=== PATIENT | male | born 2000 | race Caucasian/White ===

== ENCOUNTER 2020-11-05 21:55 | Emergency (ER) | payer OTHER ==
[~2020-11-05] VITALS: Ht 177.8 cm; Wt 68.0 kg
[2020-11-05 22:12] VITALS: BP 126/47
--- NOTE | 2020-11-05 22:30 | ED General ---
General Chief Complaint: Chest Wall Stated Complaint: MUSCLE PAIN/CHEST PAIN/FEVER Nursing Triage Note: TO ED VIA POV AND AMBULATORY TO ROOM 9 WITH C/O CHEST PAINS SINCE LAST WEEK. DENIES COUGH. TONIGHT CHEST PAIN HAS BEEN MORE CONSISTENT RATES 5 ON 0-10 SCALE. STATES 100 TEMP. TOOK OTC COLD/FLU MED THIS AFTERNOON. NO LOST OF TASTE OR SMELL. DENIES N/V/D. Nursing Sepsis Screen: No Definite Risk Source of Information: Patient History of Present Illness Date Seen by Provider: Nov 05, 2020 Time Seen by Provider: 22:10 Initial Comments PT ARRIVES VIA POV FROM HOME STATES HE HAS BEEN HAVING CHEST HEAVINESS FOR THE LAST WEEK, MORE CONSTANT TONIGHT C/O FEVER UP TO 100--BEGAN THIS AFTERNOON. 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 PT AND 1 ROOM MATE GOT BACK TO [employer] THIS PAST SUNDAY--HE IS NOT ILL. 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 [place], [place] PT IS ALSO IN [facility] Allergies and Home Medications Allergies Coded Allergies: No Known Drug Allergies (Unverified , 11/05/20) Patient Home Medication List Home Medication List Reviewed: Yes Review of Systems Review of Systems Constitutional: see HPI, fever EENTM: no symptoms reported; No ear pain, No nose congestion, No throat pain Respiratory: no symptoms reported; No cough, No short of breath Cardiovascular: see HPI, chest pain; No palpitations, No syncope Gastrointestinal: no symptoms reported; No abdominal pain, No diarrhea, No nausea, No vomiting Genitourinary: no symptoms reported Musculoskeletal: see HPI (BODY ACHES) Skin: no symptoms reported Psychiatric/Neurological: No Symptoms Reported Hematologic/Lymphatic: No Symptoms Reported Immunological/Allergic: no symptoms reported Past Zvnxmlh-Wshgzh-Pciwqn Hx Past Med/Social Hx: Reviewed and Corrections made Patient Social History Alcohol Use: Denies Use Drug of Choice: DENIES Smoking Status: Never a Smoker Recent Infectious Disease Expo: No Immunizations Up To Date PED Vaccines UTD: Yes Past Medical History Surgeries: Yes (WISDOM TEETH) Respiratory: No Cardiac: No Neurological: No Genitourinary: No Gastrointestinal: No Musculoskeletal: No Endocrine: No HEENT: No Cancer: No Psychosocial: No Integumentary: No Blood Disorders: No Physical Exam Vital Signs Vital Signs - First Documented 11/05/20 22:12 Temp 36.6 Pulse 88 Resp 16 B/P (MAP) 126/47 (73) Pulse Ox 98 O2 Delivery Room Air Capillary Refill : Less Than 3 Seconds Height, Weight, BMI Height: '" Weight: lbs. oz. kg; 21.00 BMI Method: General Appearance: No Apparent Distress, WD/WN, Other (DOES NOT APPEAR ILL OR TO BE IN ANY DISCOMFORT OR DISTRESS) HEENT: PERRL/EOMI, TMs Normal, Normal ENT Inspection, Pharynx Normal, Moist Mucous Membranes Neck: Full Range of Motion, Normal Inspection, Non Tender, Supple; No Lymphadenopathy (L), No Lymphadenopathy (R) Respiratory: Chest Non Tender, Normal Breath Sounds, No Accessory Muscle Use, No Respiratory Distress Cardiovascular: Regular Rate, Rhythm, No Edema, No Gallop, No JVD, No Murmur, Normal Peripheral Pulses Gastrointestinal: Normal Bowel Sounds, No Organomegaly, Non Tender, Soft Back: Normal Inspection Extremity: Normal Inspection Neurologic/Psychiatric: Alert, Oriented x3, No Motor/Sensory Deficits, Normal 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, 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 Norm as Tested Skin: Normal Color, Warm/Dry; No Rash Progress/Results/Core Measures Suspected Sepsis Recent Fever Within 48 Hours: Yes Infection Criteria Present: Suspected New Infection New/Unexplained Altered Menta: No Sepsis Screen: No Definite Risk SIRS Temperature: Pulse: 88 Respiratory Rate: 16 Blood Pressure 126 /47 Mean: 73 Results/Orders Lab Results Laboratory Tests Test 11/05/20 22:25 Range/Units Coronavirus 2018 ([facility]O) Negative Negative Micro Results Microbiology 11/05/20 Influenza Types A,B Antigen (ALEXA) - Final, Complete My Orders Orders - ASHLEY CESPEDES DO Influenza A And B Antigens (11/05/20 22:08) Coronavirus Sars-Cov-2 So 2018 (11/05/20 22:08) Covid 19 Inhouse Test (11/05/20 22:08) Vital Signs/I&O 11/05/20 22:12 Temp 36.6 Pulse 88 Resp 16 B/P (MAP) 126/47 (73) Pulse Ox 98 O2 Delivery Room Air Capillary Refill : Less Than 3 Seconds Blood Pressure Mean: 73 Progress Note : Progress Note PLACED IN ISOLATION ROOM PPE WORN AT ALL TIMES COVID-19 TESTING PERFORMED PT ADVISED OF NEED FOR QUARANTINE VITALS STABLE, NO FEVER, NO DYSPNEA, NO HYPOXIA Departure Impression Primary Impression: Person under investigation for COVID-19 Disposition: 01 HOME, SELF-CARE Condition: Stable Departure-Patient Inst. Referrals: TANESHA MARLEY MD Patient Instructions: Preventing the Spread of an Infectious Disease, Coronavirus Disease 2019 (COVID-19) Overview Add. Discharge Instructions: HOME, REST LOTS OF CLEAR LIQUIDS--WATER, BROTH, JELLO, GATORADE TYLENOL 1 GRAM / MOTRIN 800 MG 4 TIMES A DAY NEEDED FOR PAIN OR FEVER QUARANTINE YOURSELF, ALL HOUSEHOLD AND CLOSE CONTACTS FOR 2 WEEKS OR UNTIL CLEARED BY . OR HEALTH DEPT FOLLOW UP WITH [facility] CL[facility], [facility] [place], OR [facility] DEPT IN 4-5 DAYS IF YOU ARE STILL HAVING SYMPTOMS, AND YOUR SEND-OUT COVID-19 TEST IS NEGATIVE. All discharge instructions reviewed with patient and/or family. Voiced und erstanding. ASHLEY CESPEDES DO Nov 05, 2020 22:30
== END 2020-11-05 23:13 | disposition home or self-care (01) ==
LOC: ER 21:58
DX: Z20.828 Contact with and (suspected) exposure to other viral communicable diseases (principal)
CPT/HCPCS: 87804; 99282; U0002; 87635

== ENCOUNTER 2020-11-15 22:56 | Emergency (ER) | payer OTHER ==
[~2020-11-15] VITALS: Ht 177.8 cm; Wt 68.2 kg
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
[2020-11-16 00:03] LABS: BASOPHILS % (AUTO) 0 % (0-10); EOSINOPHILS % (AUTO) 0 % (0-10); HEMATOCRIT 41 % (40-54); HEMOGLOBIN 15.3 g/dL (13.3-17.7); LYMPHOCYTES # (AUTO) 2.2 10^3/uL (1.0-4.0); LYMPHOCYTES % (AUTO) 26 % (12-44); MEAN CORPUSCULAR HEMOGLOBIN 32 pg (25-34); MEAN CORPUSCULAR HGB CONC 37 g/dL (32-36); MEAN CORPUSCULAR VOLUME 86 fL (80-99); MEAN PLATELET VOLUME 9.3 fL (9.0-12.2); MONOCYTES # (AUTO) 0.6 10^3/uL (0.0-1.0); MONOCYTES % (AUTO) 7 % (0-12); NEUTROPHILS # (AUTO) 5.4 10^3/uL (1.8-7.8); NEUTROPHILS % (AUTO) 66 % (42-75); PLATELET COUNT 228 10^3/uL (130-400); WHITE BLOOD COUNT 8.2 10^3/uL (4.3-11.0)
[2020-11-16 00:06] LABS: ALBUMIN 4.7 GM/DL (3.2-4.5); CHLORIDE 101 MMOL/L (98-107); POTASSIUM 3.5 MMOL/L (3.6-5.0); SODIUM 137 MMOL/L (135-145)
[2020-11-16 00:08] LABS: CALCIUM 9.8 MG/DL (8.5-10.1)
[2020-11-16 00:09] LABS: GLUCOSE 97 MG/DL (70-105); TOTAL PROTEIN 7.5 GM/DL (6.4-8.2)
[2020-11-16 00:10] LABS: BILIRUBIN,TOTAL 1.3 MG/DL (0.1-1.0); CARBON DIOXIDE 25 MMOL/L (21-32)
[2020-11-16 00:10] LABS: BILIRUBIN,URINE NEGATIVE (NEGATIVE); CLARITY,URINE CLEAR; COLOR,URINE YELLOW; GLUCOSE, URINE (UA) NEGATIVE (NEGATIVE); KETONES,URINE NEGATIVE (NEGATIVE); LEUKOCYTE ESTERASE ,URINE NEGATIVE (NEGATIVE); NITRITE,URINE NEGATIVE (NEGATIVE); PH,URINE 7.5 (5-9); PROTEIN,URINE NEGATIVE (NEGATIVE)
[2020-11-16 00:12] LABS: ALKALINE PHOSPHATASE 70 U/L (40-136); CREATININE SERUM 1.04 MG/DL (0.60-1.30); GFR ESTIMATED > 60
[2020-11-16 00:13] LABS: BUN/CREATININE RATIO 14
[2020-11-16 00:15] LABS: ALANINE AMINOTRANSFERASE 18 U/L (0-55); MAGNESIUM 2.4 MG/DL (1.6-2.4)
[2020-11-16 00:20] LABS: BACTERIA,URINE NEGATIVE /HPF; SQUAMOUS EPITHELIAL CELL,UR RARE /HPF
[2020-11-16 00:29] LABS: AMPHETAMINE SCREEN, URINE NEGATIVE (NEGATIVE); BARBITURATE SCREEN URINE NEGATIVE (NEGATIVE); BENZODIAZEPINES SCREEN URINE NEGATIVE (NEGATIVE); CANNABINOID SCREEN, URINE NEGATIVE (NEGATIVE); COCAINE SCREEN URINE NEGATIVE (NEGATIVE); METHADONE STAT NEGATIVE (NEGATIVE); METHAMPHETAMINE SCREEN URINE S NEGATIVE (NEGATIVE); OPIATE SCREEN URINE NEGATIVE (NEGATIVE); OXYCODONE STAT NEGATIVE (NEGATIVE); PROPOXYPHENE STAT NEGATIVE (NEGATIVE); TRICYCLIC ANTIDEPRESSANTS SCRE NEGATIVE (NEGATIVE)
[2020-11-16 00:37] LABS: TSH (THYROID ANALYZER) 1.46 UIU/ML (0.35-4.94)
[2020-11-16 01:00] VITALS: BP 121/89
--- NOTE | 2020-11-16 06:28 | Diagnostic Imaging Report ---
Clinical indication: Patient with dyspnea. Exam: Portable chest x-ray upright view. Comparisons: None. Findings: Lungs/pleura: Lungs are clear. There is no pneumothorax. There is no pleural effusion. Mediastinum: Unremarkable. Pulmonary vasculature: Unremarkable. Heart: Unremarkable. Bones/extrathoracic soft tissue: Unremarkable. Impression: There is no radiographic evidence of acute cardiopulmonary process. Dictated by: Dictated on workstation # [id number]
== END 2020-11-16 01:01 | disposition home or self-care (01) ==
LOC: EDUNIT# 22:56 → ER 22:59
DX: R07.9 Chest pain, unspecified (principal); R06.4 Hyperventilation; R20.2 Paresthesia of skin; Z20.822 Contact with and (suspected) exposure to COVID-19
CPT/HCPCS: 36415; 71045; 80053; 80306; 81000; 83735; 84443; 84484; 85025; 85610; 85730; 93005; 93041

== ENCOUNTER 2020-12-24 12:23 | Emergency (ER) | payer OTHER ==
[~2020-12-24] VITALS: Ht 180 cm; Wt 68.0 kg
[2020-12-24 13:16] LABS: BILIRUBIN,URINE NEGATIVE (NEGATIVE); CLARITY,URINE CLEAR; COLOR,URINE YELLOW; GLUCOSE, URINE (UA) NEGATIVE (NEGATIVE); KETONES,URINE 2+ (NEGATIVE); LEUKOCYTE ESTERASE ,URINE NEGATIVE (NEGATIVE); NITRITE,URINE NEGATIVE (NEGATIVE); PROTEIN,URINE NEGATIVE (NEGATIVE)
[2020-12-24 13:27] LABS: BACTERIA,URINE NEGATIVE /HPF; RBC,URINE RARE /HPF
[2020-12-24] MEDS ORDERED: LACTATED RINGERS 1,000 ML IV ONE (13:43)
[2020-12-24] MEDS ORDERED: LACTATED RINGERS 1,000 ML IV SCH (14:00)
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
[2020-12-24 14:03] LABS: BASOPHILS % (AUTO) 1 % (0-10); EOSINOPHILS % (AUTO) 0 % (0-10); HEMATOCRIT 39 % (40-54); HEMOGLOBIN 13.9 g/dL (13.3-17.7); LYMPHOCYTES # (AUTO) 1.3 10^3/uL (1.0-4.0); LYMPHOCYTES % (AUTO) 23 % (12-44); MEAN CORPUSCULAR HEMOGLOBIN 32 pg (25-34); MEAN CORPUSCULAR HGB CONC 36 g/dL (32-36); MEAN CORPUSCULAR VOLUME 88 fL (80-99); MEAN PLATELET VOLUME 9.6 fL (9.0-12.2); MONOCYTES # (AUTO) 0.5 10^3/uL (0.0-1.0); MONOCYTES % (AUTO) 9 % (0-12); NEUTROPHILS # (AUTO) 3.8 10^3/uL (1.8-7.8); NEUTROPHILS % (AUTO) 68 % (42-75); PLATELET COUNT 199 10^3/uL (130-400); WHITE BLOOD COUNT 5.7 10^3/uL (4.3-11.0)
[2020-12-24 14:13] LABS: ALBUMIN 4.5 GM/DL (3.2-4.5); CHLORIDE 104 MMOL/L (98-107); POTASSIUM 3.8 MMOL/L (3.6-5.0); SODIUM 136 MMOL/L (135-145)
[2020-12-24 14:14] LABS: CALCIUM 9.1 MG/DL (8.5-10.1)
[2020-12-24 14:15] LABS: GLUCOSE 72 MG/DL (70-105); TOTAL PROTEIN 7.1 GM/DL (6.4-8.2)
[2020-12-24 14:16] LABS: CARBON DIOXIDE 22 MMOL/L (21-32)
[2020-12-24 14:17] LABS: BILIRUBIN,TOTAL 2.2 MG/DL (0.1-1.0)
[2020-12-24 14:19] LABS: ALKALINE PHOSPHATASE 66 U/L (40-136); CREATININE SERUM 0.93 MG/DL (0.60-1.30); GFR ESTIMATED > 60
[2020-12-24 14:20] LABS: BUN/CREATININE RATIO 13
[2020-12-24 14:22] LABS: ALANINE AMINOTRANSFERASE 24 U/L (0-55)
--- NOTE | 2020-12-24 14:31 | Diagnostic Imaging Report ---
Indication: Weakness COMPARISON: 11/16/2020 TECHNIQUE: Single radiograph chest dated 12/24/2020 FINDINGS: The cardiac silhouette is within normal limits in size. No significant pulmonary vascular congestion. The lungs are clear focal pulmonary opacity. No pleural effusion. No pneumothorax. No acute osseous abnormality. IMPRESSION: Stable examination without acute cardiopulmonary abnormality. Dictated by: Dictated on workstation # [id number]
[2020-12-24 15:56] VITALS: BP 119/75
== END 2020-12-24 15:58 | disposition home or self-care (01) ==
LOC: EDUNIT# 12:23 → ER 12:26
DX: R07.9 Chest pain, unspecified (principal); Z20.822 Contact with and (suspected) exposure to COVID-19
CPT/HCPCS: 36415; 71045; 80053; 81000; 82962; 83880; 84439; 84443; 84484; 85025; 85379; 86141; 86769; 93005

== ENCOUNTER 2020-12-27 08:00 | Outpatient (RCR) | payer OTHER | END 2021-03-27 | disposition home or self-care (01) | LOC: CARD 08:00 | PROVIDERS: ATTEND Nurse Practitioner Family | DX: R00.2 Palpitations (principal) | CPT/HCPCS: 93225; 93226 ==

== ENCOUNTER 2021-01-29 00:37 | Emergency (ER) | payer OTHER ==
[~2021-01-29] VITALS: Ht 180 cm; Wt 68.0 kg
[2021-01-29 00:50] VITALS: BP 153/101
--- NOTE | 2021-01-29 01:23 | ED Psychosocial ---
General Chief Complaint: Psych/Social Disorder Stated Complaint: SOB Nursing Triage Note: c/o difficulty breathing while trying to fall asleep. denies cough/fever. Source: patient, old records Exam Limitations: no limitations History of Present Illness Date Seen by Provider: Jan 29, 2021 Time Seen by Provider: 00:50 Initial Comments This 20-year-old young man presents to the emergency room with complaints of feeling short of breath when he lays down to sleep. He denies any cough or fever. He has no other symptoms of acute infectious illness such as diarrhea, vomiting, chills, etc. He has been seen in this ER multiple times for for palpitations and shortness of breath. He has had multiple thorough work-ups. He has also had a Holter monitor test performed which showed no significant pathologies. He does not feel depressed, suicidal, or anxious. However, he does have a lot of activities at present between school and [facility]. He wonders if he may be having some cold anxiety related to his busy schedule. He denies any drug or alcohol use. Allergies and Home Medications Allergies Coded Allergies: No Known Drug Allergies (Unverified , 11/05/20) Home Medications No Active Prescriptions or Reported Meds Patient Home Medication List Home Medication List Reviewed: Yes Review of Systems Constitutional: no symptoms reported EENTM: no symptoms reported Respiratory: see HPI Cardiovascular: see HPI Gastrointestinal: no symptoms reported Genitourinary: no symptoms reported Musculoskeletal: no symptoms reported Skin: no symptoms reported Psychiatric/Neurological: See HPI Past Mjdwvol-Hwanvv-Mvcpwq Hx Past Med/Social Hx: Reviewed Nursing Past Med/Soc Hx Patient Social History Alcohol Use: Denies Use Drug of Choice: DENIES Smoking Status: Never a Smoker Recent Infectious Disease Expo: No Recent Hopitalizations: No Immunizations Up To Date Tetanus Booster (TDap): Less than 5yrs PED Vaccines UTD: Yes Seasonal Allergies Seasonal Allergies: Yes Past Medical History Surgeries: Yes (dental) Respiratory: No Cardiac: No Neurological: No Genitourinary: No Gastrointestinal: No Musculoskeletal: No Endocrine: No HEENT: No Cancer: No Psychosocial: Yes Anxiety Integumentary: No Blood Disorders: No Physical Exam Vital Signs - First Documented 01/29/21 00:50 Temp 36.6 Pulse 88 Resp 20 B/P (MAP) 153/101 (118) Pulse Ox 99 O2 Delivery Room Air Capillary Refill : Less Than 3 Seconds Height, Weight, BMI Height: '" Weight: lbs. oz. kg; 20.00 BMI Method: General Appearance: WD/WN, no apparent distress HEENT: PERRL/EOMI, normal ENT inspection, pharynx normal Neck: normal inspection Respiratory: lungs clear, normal breath sounds, no respiratory distress Cardiovascular: regular rate, rhythm, no edema, no murmur Extremities: normal inspection, no pedal edema Neurologic/Psychiatric: swatch maker II-XII nml as tested, no motor/sensory deficits, alert, normal mood/affect, oriented x 3 Behavior/Eye Contact: cooperative, good eye contact, normal speech Thoughts/Hallucinations: normal thought pattern, no apparent hallucination, auditory hallucinations; No delusions Skin: normal color, warm/dry Progress/Results/Core Measures Results/Orders Vital Signs/I&O 01/29/21 00:50 Temp 36.6 Pulse 88 Resp 20 B/P (MAP) 153/101 (118) Pulse Ox 99 O2 Delivery Room Air Blood Pressure Mean: 118 Progress Progress Note : Progress Note Patient's chart was reviewed. He has had multiple thorough work-ups revealing no significant pathology. Holter monitor report was reviewed. Patient seems to be having some mild anxiety and insomnia tonight. I have recommended ezbv-sra-fxbovpi sleep aids. He has an appointment pending with Dr. Huggins and I encouraged him to discuss these issues with her and to report how he does on oxuw-edb-bzrsksa sleep aids. I reassured him that so far there is no indication in his work-ups of serious cardiopulmonary problems. Departure Impression Primary Impression: Insomnia Qualified Codes: G47.00 - Insomnia, unspecified Additional Impression: Dyspnea Qualified Codes: R06.00 - Dyspnea, unspecified Disposition: 01 HOME, SELF-CARE Condition: Stable Departure-Patient Inst. Decision time for Depature: 01:19 Referrals: NO,LOCAL PHYSICIAN (PCP/Family) Primary Care Physician Patient Instructions: Insomnia Add. Discharge Instructions: Your feelings of shortness of breath and your difficulty sleeping did not appear to be tied to a serious physical problem. Mild anxiety may be a contributing factor. Please discuss this at your follow-up appointment with Dr. Huggins. Drink plenty of clear liquids and eat a well-balanced diet. To aid sleep, consider taking Benadryl (diphenhydramine) up to 50 mg or Unisom (doxylamine) up to 50 mg at bedtime. Call with questions or concerns. Return to the ER if you have worsening symptoms. All discharge instructions reviewed with patient and/or family. Voiced understanding. Scripts No Active Prescriptions or Reported Meds Copy Copies To 1: JAZZ HUGGINS MD, JOSHUA T MD Jan 29, 2021 01:23
== END 2021-01-29 01:28 | disposition home or self-care (01) ==
LOC: EDUNIT# 00:37 → ER 00:40
DX: G47.00 Insomnia, unspecified (principal); R06.00 Dyspnea, unspecified; I10 Essential (primary) hypertension
CPT/HCPCS: 93041

== ENCOUNTER → 2021-11-16 | Outpatient (CLI) | payer OTHER ==
[~2021-11-16] MED LIST: CATHETER FLUSH 10 ML SYR IV PRN; HOLD METFORMIN - RECEIVED CONTRAST 20 ML VIAL IV SCH; IOHEXOL 350 MG/ML 100 ML (OMNIPAQUE 350) VIAL IV ONE; NS 100 ML (IVPB) BAG IV ONE
--- NOTE | 2021-11-16 16:15 | Diagnostic Imaging Report ---
PROCEDURE: CT chest with contrast only. TECHNIQUE: Multiple contiguous axial images were obtained through the chest after administration of intravenous contrast. Auto Exposure Controls were utilized during the CT exam to meet ALARA standards for radiation dose reduction. INDICATION: 21-year-old male, chest pain when driving and laying down for over one year. CORRELATION: None FINDINGS: There is no significant mediastinal, axillary and/or hilar lymphadenopathy. The heart size is unremarkable. Thoracic aorta normal in contour. The lung ardon are clear of infiltrate. No significant pleural effusion. The visualized portions of the upper abdomen are unremarkable. Probable mild gynecomastia. The visualized osseous structures demonstrate no acute findings. IMPRESSION: Unremarkable appearing CT of the chest. Dictated by: Dictated on workstation # [id number]
== END ==
LOC: RAD 15:45
PROVIDERS: ATTEND Internal Medicine Gastroenterology
DX: R07.89 Other chest pain (principal); R10.13 Epigastric pain
CPT/HCPCS: 71260